=== PATIENT | female | born 1965 | race Caucasian/White ===

== ENCOUNTER 2019-09-08 11:34 | Emergency (ER) | payer BC ==
[2019-09-08] MEDS ORDERED: Sodium Chloride 0.9% 10 ML Syringe FLUSH PRN (11:57)
[2019-09-08] MEDS ORDERED: Ondansetron 4 MG/2 ML SDV IVPUSH ONE (11:57)
[2019-09-08] MEDS ORDERED: Sodium Chloride 0.9% 1,000 ML IV SCH (12:00)
--- NOTE | 2019-09-08 12:00 | EDM.PDOC ---
ED HPI GENERAL MEDICAL PROBLEM - General Chief Complaint: Gastrointestinal Problem Stated Complaint: FLU SX Time Seen by Provider: 09/08/19 11:44 Source of Information: Reports: Patient, RN Notes Reviewed - History of Present Illness INITIAL COMMENTS - FREE TEXT/NARRATIVE: 53 year female with onset of diarrhea yesterday about 24 hrs ago, frequent, watery with onset of vomiting last evening also frequent and repetitive. Has been unable to eat or keep even liquids down. Still having watery diarrhea and nausea, vomiting this am. Has not been coughing. Has had low grade fever, chills and [place]. No major abd pain or cramping at this time. head Pain Score (Numeric/FACES): 6 - Related Data Allergies Allergy/AdvReac Type Severity Reaction Status Date / Time Penicillins Allergy Shortness Verified 09/08/19 11:45 of Breath Home Meds: Home Meds Escitalopram [Lexapro] 10 mg PO DAILY 09/08/19 [History] Omeprazole 40 mg PO DAILY 09/08/19 [History] Simvastatin 40 mg PO BEDTIME 09/08/19 [History] Past Medical History HEENT History: Reports: Impaired Vision Cardiovascular History: Reports: High Cholesterol Social & Family History - Tobacco Use Smoking Status *Q: Never Smoker - Caffeine Use Caffeine Use: Reports: None - Recreational Drug Use Recreational Drug Use: No ED ROS GENERAL - Review of Systems Review Of Systems: See Below Constitutional: Reports: Fever, Chills HEENT: Denies: Throat Pain Respiratory: Denies: Shortness of Breath, Cough Cardiovascular: Denies: Chest Pain GI/Abdominal: Reports: Abdominal Pain (mild), Nausea, Vomiting Skin: Reports: No Symptoms Neurological: Reports: Dizziness ED EXAM, GI/ABD - Physical Exam Exam: See Below General Appearance: Alert, Mild Distress Throat/Mouth: Other (oral mucosa dry). No: Inflammation Neck: Supple Respiratory/Chest: No Respiratory Distress, Lungs Clear, Normal Breath Sounds. No: Rhonchi, Wheezing Cardiovascular: Tachycardia GI/Abdominal Exam: Soft, Tender (mild upper and mid tenderness, lower abd nontender). No: Guarding Back Exam: No: CVA Tenderness (L), CVA Tenderness (R) Extremities: Normal Inspection, Normal Range of Motion Neurological: Alert, Oriented, No Motor/Sensory Deficits Skin Exam: Warm, Dry, Normal Color Course - Vital Signs Last Recorded V/S: Last Vital Signs Temp 97.9 F 09/08/19 11:39 Pulse 105 H 09/08/19 11:39 Resp 19 09/08/19 11:39 BP 162/81 H 09/08/19 11:39 Pulse Ox 95 09/08/19 11:39 - Orders/Labs/Meds Orders: Active Orders 24 hr Category Date Time Status Peripheral IV Care [RC] . DIRECTED Care 09/08/19 11:58 Active Sodium Chloride 0.9% [Normal Saline] 1,000 ml Med 09/08/19 12:00 Active IV ONETIME Sodium Chloride 0.9% [Saline Flush] Med 09/08/19 11:57 Active 10 ml FLUSH ASDIRECTED PRN Peripheral IV Insertion Adult [OM.PC] Stat Oth 09/08/19 11:56 Ordered Medication Orders Sodium Chloride (Normal Saline) 1,000 mls @ 999 mls/hr IV ONETIME CARLIE Last Admin: 09/08/19 12:15 Dose: 999 mls/hr Sodium Chloride (Saline Flush) 10 ml FLUSH ASDIRECTED PRN PRN Reason: Keep Vein Open Last Admin: 09/08/19 12:16 Dose: 10 ml Meds: Medications Generic Name Dose Route Start Last Admin Trade Name Freq PRN Reason Stop Dose Admin Sodium Chloride 1,000 mls @ 999 mls/hr 09/08/19 12:00 09/08/19 12:15 Normal Saline IV 999 mls/hr ONETIME CARLIE Administration Sodium Chloride 10 ml 09/08/19 11:57 09/08/19 12:16 Saline Flush FLUSH 10 ml ASDIRECTED PRN Administration Keep Vein Open Discontinued Medications Generic Name Dose Route Start Last Admin Trade Name Freq PRN Reason Stop Dose Admin Ondansetron HCl 4 mg 09/08/19 11:57 09/08/19 12:15 Zofran IVPUSH 09/08/19 11:58 4 mg ONETIME ONE Administration - Re-Assessments/Exams Free Text/Narrative Re-Assessment/Exam: 09/08/19 12:41 influenza screen is neg. Giving 1 liter of IV NS, she does feel better after the zofran. Discharge instr. as documented. Departure - Departure Time of Disposition: 12:42 Disposition: Home, Self-Care 01 Condition: Fair Clinical Impression: Vomiting, Diarrhea, Dehydration - Discharge Information Referrals: Guanaco Sharma MD [Primary Care Provider] - Forms: ED Department Discharge Additional Instructions: Clear liquids until tomorrow am, than very careful bland diet as tolerated. Folllow up clinic if not much better within 1 to 2 days as expected. Return to ED as needed. Sepsis Event Note - Evaluation Sepsis Screening Result: Possible Sepsis Risk - Focused Exam Vital Signs: Vital Signs Temp Pulse Resp BP Pulse Ox 09/08/19 11:39 97.9 F 105 H 19 162/81 H 95 Date Exam was Performed: 09/08/19 Time Exam was Performed: 12:41 - My Orders Last 24 Hours: My Active Orders 09/08/19 11:56 Peripheral IV Insertion Adult [OM.PC] Stat 09/08/19 11:57 Sodium Chloride 0.9% [Saline Flush] 10 ml FLUSH ASDIRECTED PRN 09/08/19 11:58 Peripheral IV Care [RC] . DIRECTED 09/08/19 12:00 Sodium Chloride 0.9% [Normal Saline] 1,000 ml IV ONETIME - Assessment/Plan Last 24 Hours: My Active Orders 09/08/19 11:56 Peripheral IV Insertion Adult [OM.PC] Stat 09/08/19 11:57 Sodium Chloride 0.9% [Saline Flush] 10 ml FLUSH ASDIRECTED PRN 09/08/19 11:58 Peripheral IV Care [RC] . DIRECTED 09/08/19 12:00 Sodium Chloride 0.9% [Normal Saline] 1,000 ml IV ONETIME
== END 2019-09-08 13:28 | disposition home or self-care (01) ==
LOC: JD.ED 11:34
DX: E86.0 Dehydration (principal); R11.10 Vomiting, unspecified; R19.7 Diarrhea, unspecified; E78.00 Pure hypercholesterolemia, unspecified; Z79.899 Other long term (current) drug therapy; Z88.0 Allergy status to penicillin
CPT/HCPCS: 87804; 96361; 96374; 99284; J2405; J7030; 99283